=== PATIENT | male | born 1995 | race Hispanic/Latino ===

== ENCOUNTER 2020-06-24 11:57 | Emergency (ER) | payer BC ==
[~2020-06-24] VITALS: Ht 180.3 cm; Wt 73.9 kg
--- NOTE | 2020-06-24 13:05 | Diagnostic Imaging Report ---
Exam: CHEST 2 VIEWS Date: 06/24/2020 1:00 PM INDICATION: ^CHEST PAIN ^[id number] ^[id number] Comparison: None FINDINGS: Lines/Tubes:None Lungs:The lungs are well inflated. No focal consolidation or pulmonary edema. Pleura:No pleural effusion. No pneumothorax. Heart/Mediastinum:The cardiomediastinal silhouette is normal in size and contour. Bones/Soft Tissues: No acute osseous abnormality. Upper abdomen: Unremarkable. IMPRESSION: Negative for acute intrathoracic process. Signed by: Sreekanth Lunsford MD on 06/24/2020 1:01 PM
[2020-06-24 13:59] LABS: BASOPHILS % 0.3 % (0.0-1.0); EOSINOPHILS # (AUTO) 0.1 (0.0-0.4); EOSINOPHILS % 0.6 % (0.0-6.0); HEMATOCRIT 47.8 % (38.2-49.6); HEMOGLOBIN 15.6 g/dL (14.0-18.0); LYMPHOCYTES # (AUTO) 2.6 (1.0-3.2); LYMPHOCYTES % 30.1 % (18.0-39.1); MEAN CORPUSCULAR HEMOGLOBIN 27.9 pg (28-32); MEAN CORPUSCULAR HGB CONC 32.6 g/dL (31-35); MEAN CORPUSCULAR VOLUME 85.4 fL (81-99); MONOCYTES # (AUTO) 0.6 (0.2-0.8); MONOCYTES % 6.8 % (4.4-11.3); NEUTROPHILS # (AUTO) 5.4 (2.1-6.9); NEUTROPHILS % 61.9 % (38.7-80.0); PARTIAL THROMBOPLASTIN TIME 28.1 seconds (23.8-35.5); PLATELET COUNT 240 x10e3/uL (140-360); RED CELL DISTRIBUTION WIDTH 15.5 % (11.7-14.4)
[2020-06-24 14:04] LABS: INR 0.85
[2020-06-24 14:06] LABS: BILIRUBIN,URINE NEGATIVE (NEGATIVE); CLARITY,URINE CLEAR (CLEAR); COLOR,URINE YELLOW (YELLOW); KETONES,URINE NEGATIVE (NEGATIVE); LEUKOCYTE ESTERASE ,URINE NEGATIVE (NEGATIVE); NITRITE,URINE NEGATIVE (NEGATIVE); PROTEIN,URINE DIPSTICK NEGATIVE (NEGATIVE); URINE UROBILINOGEN 0.2 mg/dL (0.2 - 1)
[2020-06-24 14:07] LABS: AMPHETAMINES SCREEN,URINE NEGATIVE (NEGATIVE); BENZODIAZEPINES SCREEN,URINE NEGATIVE (NEGATIVE); PHENCYCLIDINE SCREEN,URINE NEGATIVE (NEGATIVE)
[2020-06-24 14:12] LABS: ALANINE AMINOTRANSFERASE 38 IU/L (0-55); ALBUMIN 5.1 g/dL (3.5-5.0); ALBUMIN/GLOBULIN RATIO 1.4 (0.8-2.0); ALKALINE PHOSPHATASE 54 IU/L (40-150); BLOOD UREA NITROGEN 11 mg/dL (7-26); BUN/CREATININE RATIO 10 (6-25); CALCIUM 10.4 mg/dL (8.4-10.2); CARBON DIOXIDE 22 mmol/L (22-29); CHLORIDE 104 mmol/L (98-107); CREATINE KINASE 111 IU/L (30-200); CREATININE, SERUM 1.09 mg/dL (0.72-1.25); EST GLOMERULAR FILTRATION RATE > 60 ML/MIN (60-); GLUCOSE 89 mg/dL (74-118); SODIUM 140 mmol/L (136-145)
[2020-06-24 14:18] LABS: EPITHELIAL CELLS,URINE FEW /LPF
[2020-06-24 14:19] LABS: BACTERIA,URINE MODERATE /HPF; MUCUS,URINE MANY (RARE)
--- NOTE | 2020-06-24 18:19 | Emergency Department Note ---
History of Present Illnes History of Present Illness Chief Complaint: Chest Pain History of Present Illness This is a 25 year old male 10 AM BEGAN HAVING LEFT SIDE CHEST THROBBING THAT BECOMES SHARP WITH MOVEMENT AND RADIATES TO BACK. DENIES ANY N/V. DENIES ANY TRAUMA. DENIES ANY SHORTNESS OF BREATH. PAIN WITH PALPATION. Historian: Patient Arrival Mode: Car Additional Treatment SEISMOGRAPH COMPUTER: NONE Onset (how long ago): hour(s) Location: LEFT CHEST Quality: PAIN, SHARP Radiation: Reports non-radiation Severity: moderate Onset quality: sudden Timing of current episode: constant Chronicity: new Relieving factors: none Exacerbating factors: movement Associated symptoms: Reports denies other symptoms, Reports chest pain; Denies shortness of breath Past Medical/Family History Physician Review I have reviewed the patient's past medical and family history. Any updates have been documented here. Past Medical History Recent Fever: No Clinical Suspicion of Infectio: No New/Unexplained Change in Ment: No Past Medical History: None Past Surgical History: None Social History Smoking Cessation: Never Smoker Counseling Performed: No Alcohol Use: Social Any Illegal Drug Use: No TB Exposure/Symptoms: No Physically hurt or threatened: No Family History Family history of heart diseas: No Review of Systems Review of Systems Constitutional: Reports no symptoms EENTM: Reports no symptoms Cardiovascular: Reports as per HPI Respiratory: Reports no symptoms Gastrointestinal: Reports no symptoms Genitourinary: Reports no symptoms Musculoskeletal: Reports no symptoms Integumentary: Reports no symptoms Neurological: Reports no symptoms Psychological: Reports no symptoms Endocrine: Reports no symptoms Hematological/Lymphatic: Reports no symptoms Physical Exam Related Data Allergies: Coded Allergies: No Known Allergies (Unverified , 06/24/20) Triage Vital Signs Vital Signs Date Time Temp Pulse Resp B/P (MAP) Pulse Ox O2 Delivery O2 Flow Rate FiO2 06/24/20 12:31 98.1 100 18 126/84 100 Room Air Vital signs reviewed: Yes Physical Exam CONSTITUTIONAL Constitutional: Present well-developed, Present well-nourished HENT HENT: Present normocephalic, Present atraumatic, Present oropharynx clear/moist, Present nose normal HENT L/R: Present left ext ear normal, Present right ext ear normal EYES Eyes: Reports PERRL, Reports conjunctivae normal NECK Neck: Present ROM normal PULMONARY Pulmonary: Present effort normal, Present breath sounds normal CARDIOVASCULAR Cardiovascular: Present regular rhythm, Present heart sounds normal, Present capillary refill normal, Present normal rate, Present other (LEFT ANTERIOR CW - POINT TENDERNESS) GASTROINTESTINAL Abdominal: Present soft, Present nontender, Present bowel sounds normal GENITOURINARY Genitourinary: Present exam deferred SKIN Skin: Present warm, Present dry MUSCULOSKELETAL Musculoskeletal: Present ROM normal NEUROLOGICAL Neurological: Present alert, Present oriented x 3, Present no gross motor or sensory deficits PSYCHOLOGICAL Psychological: Present mood/affect normal, Present judgement normal Results Laboratory Result Diagram: 06/24/20 1304 06/24/20 1304 Laboratory Laboratory Tests Test 06/24/20 13:04 White Blood Count 8.76 x10e3/uL (4.8-10.8) Red Blood Count 5.60 x10e6/uL (4.3-5.7) Hemoglobin 15.6 g/dL (14.0-18.0) Hematocrit 47.8 % (38.2-49.6) Mean Corpuscular Volume 85.4 fL (81-99) Mean Corpuscular Hemoglobin 27.9 pg (28-32) Mean Corpuscular Hemoglobin Concent 32.6 g/dL (31-35) Red Cell Distribution Width 15.5 % (11.7-14.4) Platelet Count 240 x10e3/uL (140-360) Neutrophils (%) (Auto) 61.9 % (38.7-80.0) Lymphocytes (%) (Auto) 30.1 % (18.0-39.1) Monocytes (%) (Auto) 6.8 % (4.4-11.3) Eosinophils (%) (Auto) 0.6 % (0.0-6.0) Basophils (%) (Auto) 0.3 % (0.0-1.0) Neutrophils # (Auto) 5.4 (2.1-6.9) Lymphocytes # (Auto) 2.6 (1.0-3.2) Monocytes # (Auto) 0.6 (0.2-0.8) Eosinophils # (Auto) 0.1 (0.0-0.4) Basophils # (Auto) 0.0 (0.0-0.1) Absolute Immature Granulocyte (auto 0.03 x10e3/uL (0-0.1) Prothrombin Time 12.0 seconds (11.9-14.5) Prothromb Time International Ratio 0.85 Activated Partial Thromboplast Time 28.1 seconds (23.8-35.5) D-Dimer Quantitative (PE/DVT) < 100 ng/mL (0-400) Urine Color Yellow (YELLOW) Urine Clarity Clear (CLEAR) Urine pH 5.5 (5 - 7) Urine Specific Villalba 1.025 (1.010-1.025) Urine Protein Negative (NEGATIVE) Urine Glucose (UA) Negative (NEGATIVE) Urine Ketones Negative (NEGATIVE) Urine Blood Negative (NEGATIVE) Urine Nitrite Negative (NEGATIVE) Urine Bilirubin Negative (NEGATIVE) Urine Urobilinogen 0.2 mg/dL (0.2 - 1) Urine Leukocyte Esterase Negative (NEGATIVE) Urine RBC None /HPF (0-5) Urine WBC None /HPF (0-5) Urine Epithelial Cells Few /LPF (NONE) Urine Bacteria Moderate /HPF (NONE) Urine Mucus Many (RARE) Sodium Level 140 mmol/L (136-145) Potassium Level 4.0 mmol/L (3.5-5.1) Chloride Level 104 mmol/L (98-107) Carbon Dioxide Level 22 mmol/L (22-29) Anion Gap 18.0 mmol/L (8-16) Blood Urea Nitrogen 11 mg/dL (7-26) Creatinine 1.09 mg/dL (0.72-1.25) Estimat Glomerular Filtration Rate > 60 ML/MIN (60-) BUN/Creatinine Ratio 10 (6-25) Glucose Level 89 mg/dL (74-118) Calcium Level 10.4 mg/dL (8.4-10.2) Total Bilirubin 0.7 mg/dL (0.2-1.2) Aspartate Amino Transf (AST/SGOT) 27 IU/L (5-34) Alanine Aminotransferase (ALT/SGPT) 38 IU/L (0-55) Alkaline Phosphatase 54 IU/L (40-150) Creatine Kinase 111 IU/L (30-200) Creatine Kinase MB 1.10 ng/mL (0-5.0) Troponin I 0.005 ng/mL (0-0.300) B-Type Natriuretic Peptide < 10.0 pg/mL (0-100) Total Protein 8.7 g/dL (6.5-8.1) Albumin 5.1 g/dL (3.5-5.0) Globulin 3.6 g/dL (2.3-3.5) Albumin/Globulin Ratio 1.4 (0.8-2.0) Urine Opiates Screen Negative (NEGATIVE) Urine Methadone Screen Negative (NEGATIVE) Urine Barbiturates Screen Negative (NEGATIVE) Urine Phencyclidine Screen Negative (NEGATIVE) Urine Amphetamines Screen Negative (NEGATIVE) Urine Methamphetamines Screen Negative (NEGATIVE) Urine Benzodiazepines Screen Negative (NEGATIVE) Urine Cocaine Screen Negative (NEGATIVE) Urine Cannabinoids Screen Negative (NEGATIVE) Lab results reviewed: Yes Imaging Imaging results reviewed: Yes Procedures 12 Lead ECG Interpretation ECG Interpretation : ECG: ECG 1 Child Care Director: Interpreted by ED physician Date: Jun 24, 2020 Time: 12:39 Rhythm: sinus rhythm Rate: normal (73) QRS axis: normal ST segment elevation: II (ALL <1MM), III, V4, V5, V6 Other findings: LVH Clinical Impression: abnormal ECG Additional Comments ? AL DEPRESSION V4V5 - SENT TO DR WASHBURN AND ECHO/LABS ORDERED Assessment & Plan Medical Decision Making MDM CP ATYPICAL BUT INITIALLY JUST ORDERED ECG AND CXR BUT ECG WITH ? PERICARDITIS - CHECK CBC, CHEM, CARDIACS, CXR, AND ECHO, D-DIMER - R/O NSTEMI, PERICARDITIS, PERICARD EFFUSION, COSTOCHONDRITIS, PE Reassessment Reassessment DR WASHBURN SAW PT, ECHO NORMAL, OK TO GO HOME. IBUPROFEN 600 TID, F/U PCP AND MADDISON, RTROBERT SX'S WORSEN, SOB Assessment & Plan Final Impression: (1) Atypical chest pain Depart Disposition: HOME, SELF-CARE Last Vital Signs Date Time Temp Pulse Resp B/P (MAP) Pulse Ox O2 Delivery O2 Flow Rate FiO2 06/24/20 17:53 75 16 100 Room Air 06/24/20 12:31 98.1 GISELLE SILVESTRE MD Jun 24, 2020 18:19
--- NOTE | 2020-06-24 18:39 | Consultation ---
DATE OF CONSULTATION: 06/24/2020 CHIEF COMPLAINT: Chest pain. CHIEF COMPLAINT: Chest pain. HISTORY OF PRESENT ILLNESS: This is a 25-year-old male with no medical history. The patient presents to ER with complaints of left-sided chest pain. Cardiology was consulted to evaluate the patient. The patient is seen in room, reports yesterday had some chest pain. It has been constant, worse with deep breathing. However, woke up this morning with chest pain worse, so therefore came to the ER for further evaluation on this. Chest pain is reproducible with palpation. Denies any exertional chest pain or shortness of breath. Reports has been working out and feels sore from his working out. Cardiac enzymes negative x1 and EKG without changes suggestive of acute event. PAST MEDICAL HISTORY: Denies any medical history. PAST SURGICAL HISTORY: Denies any surgical history. FAMILY HISTORY: Mother reported alive, history of hypertension. Father is alive, reports healthy. SOCIAL HISTORY: Single. Denies any alcohol, tobacco, or illicit drugs. ALLERGIES: NO KNOWN ALLERGIES. REVIEW OF SYSTEMS: GENERAL: Denies any fatigue, weakness, fevers, chills, or night sweats. SKIN: No rashes or bruises. HEENT: Denies any nausea, vomiting, vision change, blurred vision, double vision, epistaxis, sore throat, or swollen neck. CARDIAC: Left-sided chest pain, reproducible with palpation and deep breathing. Denies any dyspnea on exertion. No orthopnea, PND, or lower extremity edema. RESPIRATORY: Denies any shortness of breath, coughing, or hemoptysis. GI: Reports good appetite. No nausea, vomiting, diarrhea, constipation, melena, tarry or bloody stools. URINARY: Denies hematuria or dysuria. VASCULAR: Denies lower extremity edema or claudication. MUSCULOSKELETAL: Denies any muscle weakness, joint pains, or back pains. NEUROLOGIC: Denies any numbness, tingling, tremors, paralysis, fainting, blackouts, or seizures. ENDOCRINE: Denies heat or cold intolerance, polyuria, polydipsia, or polyphagia. HEMATOLOGY: Denies any bleeding or bruising. PHYSICAL EXAMINATION: CURRENT VITAL SIGNS: Height 71 inches, weight 163 pounds. Temperature 98.1, pulse 100, respiratory rate 18, blood pressure 126/84, and pulse ox 100% on room air. Chest x-ray showing no acute abnormalities. EKG showing sinus rhythm with heart rate of 73. ASSESSMENT AND PLAN: Chest pain, seems noncardiac. The patient presents to Patients ER with complaints of chest pain, worse with palpation and deep breathing. Pleuritic/ pericarditic in nature. Denies any fevers or chills. EKG without changes, suggestive of acute event. Cardiac enzymes strongly negative. We will do echo to evaluate heart function and structure. We will cycle cardiac enzymes. If negative, the patient can go home from cardiac standpoint on NSAID and follow up in office. Thank you very much for this consult. SEEN AND EXAMINED DISCUSSED WITH ER MD Dictated by Suresh Abel, COVER MARKER Kya Velasquez MD DC/ZULAY /[id number] MTDMaureen
== END 2020-06-24 18:47 | disposition home or self-care (01) ==
LOC: ER 12:05
DX: R07.89 Other chest pain (principal); R94.31 Abnormal electrocardiogram [ECG] [EKG]
CPT/HCPCS: 36415; 71046; 80053; 80307; 81001; 82550; 82553; 83880; 84484; 85025; 85379; 85610; 85730; 93005; 93306; 99284